=== PATIENT | male | born 1995 ===

== ENCOUNTER 2019-08-17 13:03 | Emergency (ER) | payer SELFPAY ==
[2019-08-17 13:29] VITALS: BP 142/78
--- NOTE | 2019-08-17 13:44 | ER Document Report ---
ED Flu Like - General Chief Complaint: Flu Symptoms Stated Complaint: FLU SYMPTOMS Time Seen by Provider: 08/17/19 13:35 - HPI Notes: 24-year-old male to the emergency department with complaints of flulike symptoms that began 2 days ago. He states that he has been having body aches, cough, nasal congestion, feeling hot and cold. He states he has not measured a fever himself but he is felt like he has had 1. He states he has had positive sick contact. He states that he had to leave work today because he was feeling so poorly. He continues to take in fluids and urinate fine. He states that he has had some nausea but denies any vomiting or diarrhea. - Related Data Allergies/Adverse Reactions: No Known Allergies Allergy (Verified 08/17/19 13:34) Past Medical History - General Information source: Patient - Social History Smoking Status: Former Smoker Frequency of alcohol use: Social Drug Abuse: None Lives with: Family Family History: Reviewed & Not Pertinent Review of Systems - Review of Systems Constitutional: See HPI, Chills, Fever EENT: Nose congestion, Nose discharge, Throat pain Cardiovascular: denies: Chest pain, Palpitations, Orthopnea, Dyspnea, Syncope Respiratory: Cough. denies: Short of breath Gastrointestinal: Nausea. denies: Abdominal pain, Diarrhea, Vomiting Genitourinary: No symptoms reported Male Genitourinary: No symptoms reported Musculoskeletal: Muscle pain - Body aches Skin: No symptoms reported Hematologic/Lymphatic: No symptoms reported Neurological/Psychological: No symptoms reported -: Yes All other systems reviewed and negative Physical Exam - Vital signs Vitals: Temp Pulse Resp BP Pulse Ox 98.4 F 81 18 142/78 H 100 08/17/19 13:28 08/17/19 13:28 08/17/19 13:28 08/17/19 13:28 08/17/19 13:28 Interpretation: Normal - General General appearance: Appears well, Alert - HEENT Head: Normocephalic, Atraumatic Eyes: Normal Pupils: PERRL Ears: Normal External canal: Normal Tympanic membrane: Normal. No: Purulent effusion Sinus: Normal Nasal: Clear rhinorrhea Mouth/Lips: Normal. No: Angioedema Pharynx: Other - Injected oropharynx with mild postnasal drainage. No exudates, no evidence for peritonsillar abscess. No Pedro's angina. Uvula is midline and nonedematous. Airway is grossly intact. No: Exudate, Peritonsillar abscess, Retropharyngeal abscess, Uvular edema, Potential airway comprom. Neck: Supple. No: Lymphadenopathy, Meningismus - Respiratory Respiratory status: No respiratory distress. No: Retractions, Tripod position Chest status: Nontender. No: Pain on movement, Pain with cough, Pain with deep breathing, Accessory muscle use Breath sounds: Nonproductive cough. No: Rales, Rhonchi, Wheezing Chest palpation: Normal - Cardiovascular Rhythm: Regular Heart sounds: Normal auscultation Murmur: No - Abdominal Inspection: Normal Distension: No distension Bowel sounds: Normal Tenderness: Nontender Organomegaly: No organomegaly - Back Back: Normal, Nontender - Neurological Neuro grossly intact: Yes Cognition: Normal Orientation: AAOx4 Joanne Coma Scale Eye Opening: Spontaneous [place] Coma Scale Verbal: Oriented Joanne Coma Scale Motor: Obeys Commands Sanford Coma Scale Total: 15 Speech: Normal Cranial nerves: Normal. No: Facial palsy, Forehead sparing, Gaze palsy, Sensory deficit, Tongue deviation Cerebellar coordination: Normal. No: Gait ataxia Motor strength normal: LUE, RUE, LLE, RLE Additional motor exam normals: Equal facing baster. No: Pronator drift Sensory: Normal - Psychological Associated symptoms: Normal affect, Normal mood - Skin Skin Temperature: Warm Skin Moisture: Dry Skin Color: Normal Course - Re-evaluation Re-evalutation: 08/18/19 Impression: Influenza with flulike symptoms. Patient would like to forego testing for influenza since the incidence is so high currently in the community. He would like to go ahead and try Tamiflu. I have described to him the possible side effect profile of severe diarrhea. I encouraged him to push fluids and if the diarrhea gets severe to stop it. He agrees with the plan. Encouraged rest and pushing fluids and alternating between Tylenol Motrin. He agrees with the plan. - Vital Signs Vital signs: Temp Pulse Resp BP Pulse Ox 98.4 F 81 18 142/78 H 100 08/17/19 13:28 08/17/19 13:28 08/17/19 13:28 08/17/19 13:28 08/17/19 13:28 Discharge - Discharge Clinical Impression: Influenza, Flu-like symptoms, Generalized body aches Condition: Stable Disposition: HOME, SELF-CARE Instructions: Influenza (OM) Additional Instructions: PUSH FLUIDS. DRINK GATORADE, WATER, POWER TUAN. ALTERNATE BETWEEN TYLENOL AND MOTRIN FOR FEVER CONTROL. YOU HAVE BEEN PRESCRIBED TAMIFLU. IT DOES HAVE A SIDE EFFECT PROFILE FOR DIARRHEA. STOP THE TAMIFLU IF THE DIARRHEA IS SEVERE. RETURN IF WORSENING SYMPTOMS. FOLLOW UP WITH PRIMARY CARE. Prescriptions: Oseltamivir Phosphate [Tamiflu 75 mg Capsule] 75 mg PO BID #10 capsule Forms: Return to Work
== END 2019-08-17 14:15 | disposition home or self-care (01) ==
LOC: ER 13:03
DX: J11.1 Influenza due to unidentified influenza virus with other respiratory manifestations (principal); M79.10 Myalgia, unspecified site; R05 Cough; R09.81 Nasal congestion; R50.9 Fever, unspecified; R11.0 Nausea; Z87.891 Personal history of nicotine dependence
CPT/HCPCS: 99283